=== PATIENT | male | born 2000 | race African-American/Black ===

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

== ENCOUNTER 2019-07-06 06:46 | Emergency (ER) | payer SELFPAY | END 2019-07-06 08:06 | disposition home or self-care (01) | LOC: SCSER 06:46 | DX: L74.0 Miliaria rubra (principal) | CPT/HCPCS: 99282 ==

== ENCOUNTER 2020-01-20 08:45 | Emergency (ER) | payer SELFPAY | END 2020-01-20 09:48 | disposition home or self-care (01) | LOC: ERS 08:45 | DX: Z20.2 Contact with and (suspected) exposure to infections with a predominantly sexual mode of transmission (principal) | CPT/HCPCS: 99283 ==

== ENCOUNTER 2022-07-29 20:48 | Emergency (ER) | payer SELFPAY ==
[2022-07-30 03:09] LABS: Bacteria/HPF None Seen HPF (None Seen); Bilirubin Negative (Negative); Blood, Urine Negative (Negative); Clarity Extra Turbid (Clear); Glucose, Urine (Dipstick) 100 mg/dL (Negative); Ketone, Urine Trace mg/dL (Negative); Leukocyte 250 Leu/uL (Negative); Nitrite Negative (Negative); Protein, Urine (Dipstick) 30 mg/dL (Neg-Trace); Specific Gravity, Urine 1.032 (1.002-1.036); Squamous Epithelial None Seen HPF (0-3); Urobilinogen Normal mg/dL (Less than 2); WBC/HPF Greater than 50 HPF (0-3)
[2022-07-30 11:23] LABS: Chlam.trachomatis by PCR,Urine DETECTED (NotDetected)
== END 2022-07-30 02:42 | disposition home or self-care (01) ==
LOC: ERS 20:48
DX: R30.0 Dysuria (principal)
CPT/HCPCS: 81003; 81015; 87491; 87591; 99283

== ENCOUNTER 2023-11-29 08:23 | Emergency (ER) | payer SELFPAY ==
[2023-11-29 08:47] LABS: #Basophils 0.1 thou/uL (0.0-0.2); #Eosinphils 0.2 thou/uL (0.0-0.7); #Monocytes 0.5 thou/uL (0.11-0.59); #Neutrophils 4.8 thou/uL (1.40-6.50); %Basophils 0.8 % (0.0-1.0); %Lymphocytes 15.2 % (21.0-51.0); %Monocytes 7.6 % (0.0-10.0); %Neutrophils 73.2 % (42.0-75.0); Hematocrit 41.2 % (42.0-52.0); Hemoglobin 13.6 g/dL (14.0-18.0); Mean Corpuscular Hemoglobin 30.7 pg (27.0-31.0); Mean Platelet Volume 9.9 fL (7.4-10.4); Platelet Count 217 10x3/uL (130-400); RBC Distribution Width 11.9 % (11.5-14.5); Red Blood Cell (RBC) Count 4.43 mill/uL (4.70-6.10); White Blood Cell (WBC) Count 6.6 10x3/uL (4.8-10.8)
[2023-11-29 09:17] LABS: Troponin I Less than 0.010 ng/mL (< 0.028)
[2023-11-29 09:19] LABS: ALT (SGPT) 21 U/L (8-55); AST (SGOT) 25 U/L (5-34); Albumin 3.5 g/dL (3.5-5.0); Alkaline Phosphatase 57 U/L (40-110); Anion Gap 10 mmol/L (10-20); BUN (Urea Nitrogen) 9 mg/dL (8.9-20.6); Bilirubin, Total 0.6 mg/dL (0.2-1.2); Calc. Creatinine Clearance 0 mL/min (70-130); Calcium 8.5 mg/dL (7.8-10.44); Carbon Dioxide 22 mmol/L (22-29); Chloride 108 mmol/L (98-107); Estimated GFR 107; Globulin 2.5 g/dL (2.4-3.5); Glucose 84 mg/dL (70-105); Lipase 8 U/L (8-78); Potassium 4.2 mmol/L (3.5-5.1); Sodium 136 mmol/L (136-145)
[2023-11-29] MEDS ORDERED: Acetaminophen 500 MG TAB ONE ×2 (09:24→09:27)
== END 2023-11-29 10:00 | disposition home or self-care (01) ==
LOC: ERS 08:23
DX: R07.9 Chest pain, unspecified (principal)
CPT/HCPCS: 36415; 71046; 80053; 83690; 84484; 85025; 93005

== ENCOUNTER 2024-05-08 06:27 | Emergency (ER) | payer SELFPAY ==
[2024-05-08] MEDS ORDERED: Ibuprofen 800 MG TAB ONE (07:02)
== END 2024-05-08 07:16 | disposition home or self-care (01) ==
LOC: ERS 06:27
DX: J06.9 Acute upper respiratory infection, unspecified (principal); M54.2 Cervicalgia; F17.290 Nicotine dependence, other tobacco product, uncomplicated